=== PATIENT | male | born 1965 | race Caucasian/White ===

== ENCOUNTER → 2020-10-05 | Outpatient (CLI) | payer MEDICARE, OTHER ==
[~2020-10-05] MED LIST: AMOXICILLIN500 MG PO; AUGMENTIN 875-1 EACH PO; DICLOFENAC SODI75 MG PO; GABAPENTIN300 MG PO; PREDNISONE20 MG PO; PROTONIX40 MG PO; ROBAXIN 750 MG750 MG PO; TRAMADOL HCL50 MG PO; TYLENOL EXTRA500 MG PO
== END ==
LOC: KOH-I 13:54
DX: M19.012 Primary osteoarthritis, left shoulder (principal); M25.712 Osteophyte, left shoulder
CPT/HCPCS: 73030

== ENCOUNTER 2020-11-08 04:32 | Inpatient (IN) | payer MEDICARE, OTHER ==
[~2020-11-08] VITALS: Ht 188 cm; Wt 136.1 kg
[~2020-11-08 04:32] MED LIST changes: -AUGMENTIN 875-1 EACH PO; -DICLOFENAC SODI75 MG PO; -GABAPENTIN300 MG PO; -PREDNISONE20 MG PO; -PROTONIX40 MG PO; -ROBAXIN 750 MG750 MG PO; -TRAMADOL HCL50 MG PO; -TYLENOL EXTRA500 MG PO
[2020-11-08 04:54] LABS: HEMOGLOBIN 14.9 gm/dl (14.0-17.5); RED BLOOD COUNT 4.74 M/UL (4.20-5.50); WHITE BLOOD COUNT 18.6 K/UL (4.5-11.0)
[2020-11-08 05:25] LABS: BUN/CREATININE RATIO 13 (0-10)
[2020-11-08] MEDS ORDERED: ROBAXIN 750 MG750 MG PO (14:47)
[2020-11-08] MEDS ORDERED: PREDNISONE20 MG PO (14:48)
[2020-11-08] MEDS ORDERED: GABAPENTIN300 MG PO (14:48)
[2020-11-08] MEDS ORDERED: DICLOFENAC SODI75 MG PO (14:49)
[2020-11-08] MEDS ORDERED: TRAMADOL HCL50 MG PO (14:50)
[2020-11-08] MEDS ORDERED: PROTONIX40 MG PO (14:51)
[2020-11-08] MEDS ORDERED: TYLENOL EXTRA500 MG PO (14:51)
[2020-11-09 06:49] LABS: HEMOGLOBIN 13.5 gm/dl (14.0-17.5); RED BLOOD COUNT 4.35 M/UL (4.20-5.50); WHITE BLOOD COUNT 13.1 K/UL (4.5-11.0)
[2020-11-09 07:34] LABS: BUN/CREATININE RATIO 16 (0-10)
[2020-11-10 06:24] LABS: HEMOGLOBIN 13.1 gm/dl (14.0-17.5); RED BLOOD COUNT 4.22 M/UL (4.20-5.50)
[2020-11-10 06:32] LABS: WHITE BLOOD COUNT 8.5 K/UL (4.5-11.0)
[2020-11-10 06:48] LABS: BUN/CREATININE RATIO 14 (0-10)
[2020-11-10] MEDS ORDERED: AUGMENTIN 875-1 EACH PO (10:11)
== END 2020-11-10 14:02 | disposition home or self-care (01) | DRG 392 ==
LOC: ER1 04:32 → MED SURG 4 13:06 → CDU 13:06 → MED SURG 4 21:40
PROVIDERS: Family Medicine; Physician Assistant; ADMIT Surgery
DX: K57.20 Diverticulitis of large intestine with perforation and abscess without bleeding (principal); D84.821 Immunodeficiency due to drugs; G62.9 Polyneuropathy, unspecified; E66.01 Morbid (severe) obesity due to excess calories; Z20.822 Contact with and (suspected) exposure to COVID-19; T38.0X5A Adverse effect of glucocorticoids and synthetic analogues, initial encounter; Z84.89 Family history of other specified conditions; Z68.38 Body mass index [BMI] 38.0-38.9, adult; Z79.52 Long term (current) use of systemic steroids
CPT/HCPCS: 80048; 80053; 81001; 83690; 85025; 93005; 96374; 96375; 96376; 99285; C9113; J1720; J1885; J2270; J2405; J2543; J7030; Q9967; U0002